=== PATIENT | male | born 1955 | race Caucasian/White ===

== ENCOUNTER 2019-07-06 18:38 | Emergency (ER) | payer OTHER ==
[2019-07-06] MEDS ORDERED: Acetaminophen/HYDROcodone 325-10 MG Tab PO ONE ×2 (18:39→20:00)
[2019-07-06 19:23] LABS: ANION GAP 13.5; CHLORIDE,CL 101 mmol/L (101-111); SODIUM,NA 139 mmol/L (135-145)
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
[2019-07-06] MEDS ORDERED: Acetaminophen/HYDROcodone 325-10 MG Tab ONE (20:03)
== END 2019-07-06 20:15 | disposition home or self-care (01) ==
LOC: DL.ED 18:38
DX: S22.31XA Fracture of one rib, right side, initial encounter for closed fracture (principal); S22.32XA Fracture of one rib, left side, initial encounter for closed fracture; S40.011A Contusion of right shoulder, initial encounter; V68.5XXA Driver of heavy transport vehicle injured in noncollision transport accident in traffic accident, initial encounter; Y92.410 Unspecified street and highway as the place of occurrence of the external cause
CPT/HCPCS: 36415; 71111; 73030; 80053; 81001; 85025; 99284; A9270